=== PATIENT | male | born 1975 | race Caucasian/White ===

== ENCOUNTER 2025-04-09 13:33 | Outpatient (CLI) | payer OTHER, SELFPAY ==
--- NOTE | ~2025-04-09 | CT_ITS ---
EXAMINATION: CT of the paranasal sinuses without contrast INDICATION: Chronic sinusitis COMPARISON(S): None. TECHNIQUE: Computed tomography (CT) of the paranasal sinuses was performed without the use of intravenous contrast. Dose reduction technique was utilized. FINDINGS: Sinuses: The paranasal sinuses are clear. Nasal Septum: Mildly deviated to the left.. Osteomeatal complexes: Patent. Soft tissues: Normal. IMPRESSION: No significant abnormality is seen. Reviewed, dictated and finalized at location A. T WORKER
--- OUTSIDE RECORDS SUMMARY | 2025-04-10 12:50 | XMS_ITS | Encounter Summary ---
Author Organization [facility] Address [address] [facility] [place] [address] Care Team Providers Care Plsql Developer Name Role Phone Rekha Singh MD Primary Care Provider [phone] Juvenal Quinteros MD Primary Care Provider + [phone] Reason for Visit * Reason Onset Date Comments MEDICATION REFILL 01/10/2023 Encounter Details Date Type Department Care Team (Late st Contact Info) Description 01/10/2023 Refill [facility] - [facility]rology [address] [facility], [facility] [place] [address] Cheyenne Herrera MD [address] [place] [address] MEDICATION REFILL Social History Tobacco Use Types Packs/Day Years Used Date Smoking Tobacco: Former Cigarettes Smokeless Tobacco: Never Alcohol Use Standard Drinks/Week Comments No 0 (1 standard drink = 0.6 oz pur e alcohol) PHQ-2 Answer Date Recorded PHQ2 TOTAL SCORE 4 10/04/2022 Sex and Gender Information Value Date Recorded Sex Assigned at Not on file Legal Sex Male 1:18 PM PUBLIC HEALTH ASSISTANT Gender Identity Not on file Sexual Orientation Not on file documented as of this encounter Miscellaneous Notes * Telephone Encounter - Judy Lazcano - 01/11/2023 6:58 AM CDT Refill Request Jason Thakur DENY: 10/14/2022 NOV due: NOV scheduled: LRF: 07/14/2022 Qty Disp: 180 # of refills: 2 Allergies: No Known Allergies Pended Medication Order: Requested Prescriptions Pending Prescriptions Disp Refills ??? baclofen (Lioresal) 10 MG tablet 180 tablet 2 Sig: Take 1.5 (one and one-half) tablets by mouth 4 times daily May cause drowsiness. documented in this encounter Plan of Treatment Upcoming Encounters Date Type Department Care Team (Late st Contact Info) Description 04/16/2025 8:00 AM PUBLIC HEALTH ASSISTANT Office Visit [facility] - Neurology [address] [place] [address] [place] [phone] Hollis Kahn MD [address] [place] [address] 02/26/2026 10:00 AM CDT Office Visit [facility] - Dermatology [address] [place] [address], [place] [address] Betsey Verduzco MD [address] [place] [place] [address] 3 [place] [address] documented as of this encounter Visit Diagnoses Diagnosis Multiple sclerosis Spasticity Abnormal involuntary movements documented in this encounter Care Teams Plsql Developer Relationship Specialty Start Date End Date Rekha Singh MD [address] [place] [phone] PCP - General 03/17/22 03/27/23 Juvenal Quinteros MD [address] [phone] PCP - General Family Medicine 03/28/23 documented as of this encounter
--- OUTSIDE RECORDS SUMMARY | 2025-04-10 12:50 | XMS_ITS | Encounter Summary ---
Author Organization [facility] Address [address] [place] [address] Care Team Providers Care Senior Master Scheduler Name Role Phone Juvenal Quinteros MD Primary Care Provider [phone] Reason for Visit * Reason Onset Date Comments MEDICATION REFILL 12/25/2023 Encounter Details Date Type Department Care Team (Late Contact Info) Description 12/25/2023 Refill [facility] [address] [place] [phone] Sherman Hernandez MD [address] [place] [phone] MEDICATION REFILL Social History Tobacco Use Types Packs/Day Years Used Date Smoking Tobacco: Former Cigarettes Smokeless Tobacco: Never Alcohol Use Standard Drinks/Week Comments No 0 (1 standard drink = 0.6 oz pur e alcohol) PHQ-2 Answer Date Recorded Patient Health Questionnaire-2 Score 2 12/13/2023 Sex and Gender Information Value Date Recorded Sex Assigned at Not on file Legal Sex Male 1:18 PM BARREL HEADER Gender Identity Not on file Sexual Orientation Not on file documented as of this encounter Plan of Treatment Upcoming Encounters Date Type Department Care Team ([facility] Contact Info) Description 04/16/2025 8:00 AM BARREL HEADER Office Visit [facility] Neurology [address] [place] [phone] Hollis Kahn MD [address] [place] [address] 02/26/2026 10:00 AM CDT Office Visit [facility] - Dermatology [address] [place] [address], [place] [address] Betsey Verduzco MD [address] [place] [address] [address] [place] [address] documented as of this encounter Visit Diagnoses Diagnosis MS (multiple sclerosis) Multiple sclerosis documented in this encounter Care Teams Senior Master Scheduler Relationship Specialty Start Date End Date Juvenal Quinteros MD [address] [phone] PCP - General Family Medicine 03/28/23 documented as of this encounter
--- OUTSIDE RECORDS SUMMARY | 2025-04-10 12:50 | XMS_ITS | Encounter Summary ---
Author Organization [facility] Address [address] [place] [address] Care Team Providers Care Dispensary Clerk Name Role Phone Rekha Singh MD Primary Care Provider + [phone] Rekha Singh MD Primary Care Provider + [phone] Juvenal Quinteros MD Primary Care Provider + [phone] Reason for Visit * Reason Onset Date Comments MEDICATION REFILL 11/09/2021 Encounter Details Date Type Department Care Team (Late Contact Info) Description 11/09/2021 Refill [facility] [address] [place] [address] Saman Michael MD [facility] [address] [address] MEDICATION REFILL Social History Tobacco Use Types Packs/Day Years Used Date Smoking Tobacco: Former Cigarettes Smokeless Tobacco: Never Alcohol Use Standard Drinks/Week Comments No 0 (1 standard drink = 0.6 oz pur e alcohol) Sex and Gender Information Value Date Recorded Sex Assigned at Not on file Legal Sex Male 1:18 PM LOCOMOTIVE REPAIRER DIESEL Gender Identity Not on file Sexual Orientation Not on file documented as of this encounter Plan of Treatment Upcoming Encounters Date Type Department Care Team (Late Contact Info) Description 04/16/2025 8:00 AM LOCOMOTIVE REPAIRER DIESEL Office Visit [facility] Neurology [address] [place] [address] [place] [address] Hollis Kahn MD [address] [place] [address] 02/26/2026 10:00 AM CDT Office Visit [facility] - Dermatology [address] [place] [address], [place] [phone] Betsey Verduzco MD [address] [place] [address] [address] [place] [address] documented as of this encounter Visit Diagnoses Diagnosis Neuropathic pain Neuralgia, neuritis, and radiculitis, unspecified documented in this encounter Care Teams Dispensary Clerk Relationship Specialty Start Date End Date Rekha Singh MD [address] [place] [address] [address] [place] [phone] PCP - General 04/22/19 03/16/22 Rekha Singh MD [address] [place] [address] [address] [place] [phone] PCP - General 03/17/22 03/27/23 Juvenal Quinteros MD [address] [phone] PCP - General Family Medicine 03/28/23 documented as of this encounter
--- OUTSIDE RECORDS SUMMARY | 2025-04-10 12:50 | XMS_ITS | Encounter Summary ---
Author Organization [facility] Address [address] [facility] [place] [address] Care Team Providers Care Manager Site Name Role Phone Rekha Singh MD Primary Care Provider + [phone] Rekha Singh MD Primary Care Provider + [phone] Juvenal Quinteros MD Primary Care Provider + [phone] Reason for Visit * Reason Onset Date Comments MEDICATION REFILL 10/19/2019 Encounter Details Date Type Department Care Team (Late Contact Info) Description 10/19/2019 Refill [facility] [address] [place] [address] [facility] [address] [address] MEDICATION REFILL Social History Tobacco Use Types Packs/Day Years Used Date Smoking Tobacco: Former Cigarettes Smokeless Tobacco: Never Alcohol Use Standard Drinks/Week Comments No 0 (1 standard drink = 0.6 oz pur e alcohol) Sex and Gender Information Value Date Recorded Sex Assigned at Not on file Legal Sex Male 1:18 PM APRN Gender Identity Not on file Sexual Orientation Not on file documented as of this encounter Plan of Treatment Upcoming Encounters Date Type Department Care Team (Late Contact Info) Description 04/16/2025 8:00 AM APRN Office Visit [facility] Neurology [address] [place] [address] [place] [address] Hollis Kahn MD [address] [place] [address] 02/26/2026 10:00 AM CDT Office Visit [facility] - Dermatology [address] [facility], [place] [address] Betsey Verduzco MD [address] [place] [address] [address] [place] [address] documented as of this encounter Visit Diagnoses Diagnosis Spasticity Abnormal involuntary movements Multiple sclerosis documented in this encounter Care Teams Manager Site Relationship Specialty Start Date End Date Rekha Singh MD [address] [place] [address] [place] [phone] PCP - General 04/22/19 03/16/22 Rekha Singh MD [address] [place] [address] [place] [phone] PCP - General 03/17/22 03/27/23 Juvenal Quinteros MD 3 [facility] [address] [place] [phone] PCP - General Family Medicine 03/28/23 documented as of this encounter
--- OUTSIDE RECORDS SUMMARY | 2025-04-10 12:50 | XMS_ITS | Encounter Summary ---
Author Organization [facility] Address [facility] [place] [address] Care Team Providers Care Precision Agronomist Name Role Phone Rekha Singh MD Primary Care Provider [phone] Encounter Details Date Type Department Care Team (Late st Contact Info) Description 09/13/2020 Prep for Procedure [facility] [place], [place] [phone] Moshe Sharif MD [address] [phone] Social History Tobacco Use Types Packs/Day Years Used Date Smoking Tobacco: Never Smokeless Tobacco: Never Alcohol Use Standard Drinks/Week Comments Yes 0 (1 standard drink = 0.6 oz pur e alcohol) AUDIT-C Answer Date Recorded Frequency of Alcohol Consumption Never 10/02/2018 Average Number of Drinks Not on file 019 Frequency of Binge Drinking Not on file 09/05 Sex and Gender Information Value Date Recorded Sex Assigned at Not on file Legal Sex Male 11:29 PM CDT Gender Identity Not on file Sexual Orientation Not on file COVID-19 Exposure Response Date Recorded In the last month, have you been in contact with someone who was confirmed or suspected to have Coronavirus / COVID-19? No / Unsure 09/16/2020 1:30 PM CDT documented as of this encounter Plan of Treatment Not on file documented as of this encounter Results * PRE-SURGICAL/PRE-PROCEDURE CORONAVIRUS (COVID 19) (09/13/2020 9:00 AM CDT) CORONAVIRUS SARS COV 2 PCR (RESP) NOT DETECTED NOT DETECTED 09/14/2020 1:16 PM CDT [facility] Comment: A Not Detected (negative) test result for this test means that SARS- CoV-2 RNA was not present in the specimen above the limit of detection. A negative result does not rule out the possibility of COVID-19 and should not be used as the sole basis for treatment or patient management decisions. If COVID-19 is still suspected, based on exposure history together with other clinical findings, re-testing should be considered in consultation with public health authorities. Laboratory test results should always be considered in the context of clinical observations and epidemiological data in making a final diagnosis and patient management decisions. Please review the Fact Sheets and FDA authorized labeling available for health care providers and patients using the following websites: https://www.SetJam.avocadostore/home/Covid-19/HCP/Quest[employer]/fact- sheet.html https://www.SetJam.avocadostore/home/Covid-19/Patients/ Quest[employer]/fact-sheet.html This test has been authorized by the FDA under an Emergency Use Authorization (EUA) for use by authorized laboratories. Due to the current public health emergency, [facility] is receiving a high volume of samples from a wide variety of swabs and media for COVID-19 testing. In order to serve patients during this public health crisis, samples from appropriate clinical sources are being tested. Negative test results derived from specimens received in non-commercially manufactured viral collection and transport media, or in media and sample collection kits not yet authorized by FDA for COVID-19 testing should be cautiously evaluated and the patient potentially subjected to extra precautions such as additional clinical monitoring, including collection of an additional specimen. Methodology: Nucleic Acid Amplification Test (NAAT) includes RT-PCR or TMA Additional information about COVID-19 can be found at the [facility] website: www.Euro Freelancers.avocadostore/Covid19. Test performed at [facility] [place] [address] [place] [address] Director: DEYANIRA BLANCA DO,MPH FIRST TEST UNKNOWN 09/13/2020 10:00 AM CDT [facility] EMPLOYED IN HEALTHCARE UNKNOWN 09/13/2020 10:00 AM CDT [facility] SYMPTOMATIC DEFINED BY CDC UNKNOWN 09/13/2020 10:00 AM CDT [facility] DATE OF SYMPTOM ONSET NO 09/13/2020 11:22 AM CDT [facility] HOSPITALIZATION STATUS UNKNOWN 09/13/2020 10:00 AM CDT [facility] PATIENT IN ICU UNKNOWN 09/13/2020 10:00 AM CDT [facility] RESIDENT OF [facility] UNKNOWN 09/13/2020 10:00 AM CDT [facility] NOT 09/13/2020 11:22 AM CDT [facility] PATIENT'S RACE WHITE OR 09/13/2020 10:00 AM CDT [facility] ETHNICITY NONHISPANIC 09/13/2020 10:00 AM CDT [facility] SOURCE (QST) NASOPHARYNGEAL SWAB 09/13/2020 10:00 AM CDT [facility] NASOPHARYNGEAL SWAB / Unknown 09/13/2020 9:00 AM CDT us Moshe Sharif MD MICROBIOLOGY - GENERAL GUILLERMINA DOTSON Final Result [facility] 3 [place] [address], [place] [phone] [facility] [id number] [place] [address], documented in this encounter Visit Diagnoses Diagnosis Hematochezia- Primary Blood in stool documented in this encounter Additional Health Concerns Infection Onset Date Last Indicated Resolved Time COVID-19 Rule Out 09/13/2020 09/13/2020 09/14/2020 1:16 PM CDT documented as of this encounter Care Teams Precision Agronomist Relationship Specialty Start Date End Date Rekha Singh MD 3 [facility] [place] [address] PCP - General FAMILY PRACTICE 10/02/18 documented as of this encounter
--- OUTSIDE RECORDS SUMMARY | 2025-04-10 12:50 | XMS_ITS | Encounter Summary ---
Author Organization [facility] Address [address] [place] [address] Care Team Providers Care Recruiter Manager Name Role Phone Eddie Krueger MD Primary Care Provider [phone] Eyad Appiah DO Primary Care Provider Monse Navarro MD Primary Care Provider Jamal Masters MD Primary Care Provider [phone] Monse Navarro MD Primary Care Provider Rekha Singh MD Primary Care Provider [phone] Rekha Singh MD Primary Care Provider [phone] Juvenal Quinteros MD Primary Care Provider [phone] Encounter Details Date Type Department Care Team (Late st Contact Info) Description 07/10/2015 Lab Requisition [facility] [place] - Lab Cytogenetics [address] [place] [address] [place] [address] [facility] [address] [place] [address] Social History Tobacco Use Types Packs/Day Years Used Date Smoking Tobacco: Never Assessed Sex and Gender Information Value Date Recorded Sex Assigned at Not on file Legal Sex Male 1:18 PM CERTIFIED NOVELL ADMINISTRATOR Gender Identity Not on file Sexual Orientation Not on file documented as of this encounter Plan of Treatment Upcoming Encounters Date Type Department Care Team (Late st Contact Info) Description 04/16/2025 8:00 AM CERTIFIED NOVELL ADMINISTRATOR Office Visit [facility] [address] [place] [address], [place] [phone] Hollis Kahn MD [address] [place] [address] 02/26/2026 10:00 AM CDT Office Visit [facility] - Dermatology [address] [place] [address], [place] [phone] [place] [address] [place] [address] [address] [place] [address] documented as of this encounter Procedures Procedure Name Priority Date/Time Associated Diagnosis Comments CYTOGENETICS CANCER PANEL Routine 07/10/2015 10:38 AM CERTIFIED NOVELL ADMINISTRATOR documented in this encounter Results * CYTOGENETICS CANCER PANEL (07/10/2015 10:38 AM [facility]) Indication for Study MPD (pre-treatment) 07/17/2015 9:54 AM [facility] Results Cytogenetics Analysis of 20 cells (8 cells karyotyped, GTL-banding) from 24-hour unstimulated and 72-hour Interleukin stimulated bone marrow cultures showed the following chromosome pattern: 46,XY[20] 07/17/2015 9:54 AM [facility] Interpretation Male chromosome analysis showing 46,XY with no evidence for any clonal structural or numerical abnormality in all cells examined at 400 average band resolution. FISH MDS/MPD disease panels were not performed because flow and bone morphology were negative. Note: One metaphase cell had a questionable 3q. Therefore, FISH of EVI1 was performed and found negative. 07/17/2015 9:54 AM [facility] at [address] [facility] Disclaimer *This test was developed, and its performance characteristics determined by [facility] as required by CLIA '88 Regulations. It has not been cleared or approved for specific uses by the U.S. Food and Drug Administration. The FDA has determined that such clearance or approval is not necessary. This test is used for clinical purposes. It should not be reported as investigational or for research. 07/17/2015 9:54 AM [facility] Client Information [facility] - [id number] [facility] Lab Numbers: [id number] chrom, [id number] FISH 07/17/2015 9:54 AM [facility] Other BONE MARROW SPECIMEN / Unknown 07/10/2015 10:38 AM CERTIFIED NOVELL ADMINISTRATOR 07/10/2015 1:21 PM CERTIFIED NOVELL ADMINISTRATOR Bernard Wisdom MD LAB - PATHOLOGY/CYTOLOGY ORDERAB LES Final Result Performing Organization Address City/State/[facility] Co de Phone Number [facility] [address] [place] [address] documented in this encounter Visit Diagnoses Not on filedocumented in this encounter Care Teams Recruiter Manager Relationship Specialty Start Date End Date Eddie [place] [address] PCP - General 12/12/16 10/02/17 Eyad App[place] [address] [address] [place] [address] PCP - General 10/03/17 12/13/17 Monse Navarro MD [address] [place] [address] PCP - General 12/14/17 02/06/18 Jamal Masters MD [address] [place] [phone] PCP - General Family Medicine 02/07/18 03/04/18 Monse Navarro MD [address] [place] [address] PCP - General 03/05/18 09/03/18 Rekha Singh MD [address] [place] [phone] PCP - General 04/22/19 03/16/22 Rekha Singh MD [address] [place] [phone] PCP - General 03/17/22 03/27/23 Juvenal Quinteros MD [address] [phone] PCP - General Family Medicine 03/28/23 documented as of this encounter
--- OUTSIDE RECORDS SUMMARY | 2025-04-10 12:50 | XMS_ITS | Encounter Summary ---
Author Organization [facility] Address [address] [facility] [place] [address] Care Team Providers Care Certified Scrub Tech Name Role Phone Rekha Singh MD Primary Care Provider [phone] Juvenal Quinteros MD Primary Care Provider + [phone] Reason for Visit * Reason Onset Date Comments MEDICATION REFILL 12/10/2022 Encounter Details Date Type Department Care Team (Late st Contact Info) Description 12/10/2022 Refill [facility] [address] [facility] [place] [phone] Cheyenne Herrera MD [address] [place] [address] MEDICATION REFILL Social History Tobacco Use Types Packs/Day Years Used Date Smoking Tobacco: Former Cigarettes Smokeless Tobacco: Never Alcohol Use Standard Drinks/Week Comments No 0 (1 standard drink = 0.6 oz pur e alcohol) PHQ-2 Answer Date Recorded PHQ2 TOTAL SCORE 4 10/04/2022 Sex and Gender Information Value Date Recorded Sex Assigned at Not on file Legal Sex Male 1:18 PM HOTEL CASINO FLOORPERSON Gender Identity Not on file Sexual Orientation Not on file documented as of this encounter Miscellaneous Notes * Telephone Encounter - Cleopatra Ballard MA - 12/12/2022 8:13 AM CDT Refill Request DENY: 10/14/2022 NOV scheduled: n/a LRF: 07/14/2022 Qty Disp: 180 # of refills: 2 documented in this encounter Plan of Treatment Upcoming Encounters Date Type Department Care Team (Late st Contact Info) Description 04/16/2025 8:00 AM HOTEL CASINO FLOORPERSON Office Visit [facility] [address] [place] [address] [place] [address] Hollis Kahn MD [address] [place] [address] 02/26/2026 10:00 AM CDT Office Visit [facility] - Dermatology [address] [place] [address], [place] [address] Betsey Verduzco MD [address] [place] [address] [address] [place] [address] documented as of this encounter Visit Diagnoses Diagnosis Multiple sclerosis Spasticity Abnormal involuntary movements documented in this encounter Care Teams Certified Scrub Tech Relationship Specialty Start Date End Date Rekha Singh MD [address] [place] [address] 201 [place] [phone] PCP - General 03/17/22 03/27/23 Juvenal Quinteros MD 3 [facility] [address] [place] [phone] PCP - General Family Medicine 03/28/23 documented as of this encounter
--- OUTSIDE RECORDS SUMMARY | 2025-04-10 12:50 | XMS_ITS | Encounter Summary ---
Author Organization [facility] Address [address] [place] [address] Care Team Providers Care Access Rep Name Role Phone Rekha Singh MD Primary Care Provider [phone] Juvenal Quinteros MD Primary Care Provider [phone] Reason for Visit * Reason Onset Date Comments MEDICATION REFILL 11/23/2022 Encounter Details Date Type Department Care Team (Late st Contact Info) Description 11/23/2022 Refill [facility] - [facility]rology [address] [facility] [place] [phone] Cheyenne Herrera MD [address] [place] [address] MEDICATION REFILL Social History Tobacco Use Types Packs/Day Years Used Date Smoking Tobacco: Former Cigarettes Smokeless Tobacco: Never Alcohol Use Standard Drinks/Week Comments No 0 (1 standard drink = 0.6 oz pur e alcohol) PHQ-2 Answer Date Recorded PHQ2 TOTAL SCORE 4 10/04/2022 Sex and Gender Information Value Date Recorded Sex Assigned at Not on file Legal Sex Male 1:18 PM BODY DIE MAKER Gender Identity Not on file Sexual Orientation Not on file documented as of this encounter Miscellaneous Notes * Telephone Encounter - Cleopatra Ballard MA - 11/23/2022 9:48 AM CDT Refill Request DENY: 10/14/2022 NOV scheduled: n/a LRF: 07/14/2022 Qty Disp: 180 # of refills: 2 documented in this encounter Plan of Treatment Upcoming Encounters Date Type Department Care Team (Late st Contact Info) Description 04/16/2025 8:00 AM BODY DIE MAKER Office Visit [facility] - Neurology [address] [place] [address] [place] [address] Hollis Kahn MD [address] [place] [address] 02/26/2026 10:00 AM CDT Office Visit [facility] - Dermatology [address] [place] [address], [place] [address] Betsey Verduzco MD [address] [place] [address] [address] [place] [address] documented as of this encounter Visit Diagnoses Diagnosis Multiple sclerosis Spasticity Abnormal involuntary movements documented in this encounter Care Teams Access Rep Relationship Specialty Start Date End Date Rekha Singh MD [address] [place] [address] [address] [place] [phone] PCP - General 03/17/22 03/27/23 Juvenal Quinteros MD [address] [facility] [address] [place] [phone] PCP - General Family Medicine 03/28/23 documented as of this encounter
--- OUTSIDE RECORDS SUMMARY | 2025-04-10 12:50 | XMS_ITS | Encounter Summary ---
Author Organization [facility] Address [address] [place] [address] Care Team Providers Care Mentally Impaired Teacher Name Role Phone Rekha Singh MD Primary Care Provider [phone] Juvenal Quinteros MD Primary Care Provider + [phone] Reason for Visit * Reason Onset Date Comments MEDICATION REFILL 01/13/2023 Encounter Details Date Type Department Care Team (Late st Contact Info) Description 01/13/2023 Refill [facility] Neurology [address] [place] [address], [place] [address] Sherman Hernandez MD [address] [place] [phone] MEDICATION REFILL Social History Tobacco Use Types Packs/Day Years Used Date Smoking Tobacco: Former Cigarettes Smokeless Tobacco: Never Alcohol Use Standard Drinks/Week Comments No 0 (1 standard drink = 0.6 oz pur e alcohol) PHQ-2 Answer Date Recorded PHQ2 TOTAL SCORE 4 10/04/2022 Sex and Gender Information Value Date Recorded Sex Assigned at Not on file 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 baclofen (Lioresal) 10 MG tablet 180 tablet 2 Sig: Take 1.5 (one and one-half) tablets by mouth 4 times daily May cause drowsiness. Refused Prescriptions Disp Refills ??? Tecfidera 240 MG capsule 60 capsule 11 Sig: Take 1 (one) capsule by mouth 2 times daily Refused By: KOLBY HENRY Reason for Refusal: Refill Req Msg Error - Unknown or Duplicate Patient documented in this encounter Plan of Treatment Upcoming Encounters Date Type Department Care Team (Late st Contact Info) Description 04/16/2025 8:00 AM SOFTWARE COMPUTER SPECIALIST Office Visit [facility] - Neurology [address] [place] [phone] Hollis Kahn MD [address] [place] [address] 02/26/2026 10:00 AM CDT Office Visit [facility] - Dermatology [address] [place] [phone] Betsey Verduzco MD [address] [place] [address] [address] [place] [address] documented as of this encounter Visit Diagnoses Diagnosis MS (multiple sclerosis) Multiple sclerosis Multiple sclerosis Spasticity Abnormal involuntary movements documented in this encounter Care Teams Mentally Impaired Teacher Relationship Specialty Start Date End Date Rekha Singh MD [address] [place] [address] [address] [place] [phone] PCP - General 03/17/22 03/27/23 Juvenal Quinteros MD [address] [place] [address] [address] [place] [address] PCP - General Family Medicine 03/28/23 documented as of this encounter
--- OUTSIDE RECORDS SUMMARY | 2025-04-10 12:50 | XMS_ITS | Encounter Summary ---
Author Organization [facility] Address [address] [facility] [address] Care Team Providers Care Technical Expert Name Role Phone Juvenal Quinteros MD Primary Care Provider [phone] Reason for Visit * Reason Onset Date Comments MEDICATION REFILL 01/05/2024 Encounter Details Date Type Department Care Team (Late Contact Info) Description 01/05/2024 Refill [facility] Neurology [address] [place] [phone] Sherman Hernandez MD [address] [place] [phone] MEDICATION REFILL Social History Tobacco Use Types Packs/Day Years Used Date Smoking Tobacco: Former Cigarettes Smokeless Tobacco: Never Alcohol Use Standard Drinks/Week Comments No 0 (1 standard drink = 0.6 oz pur e alcohol) PHQ-2 Answer Date Recorded Patient Health Questionnaire-2 Score 2 12/13/2023 Sex and Gender Information Value Date Recorded Sex Assigned at Not on file 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 Gender Identity Not on file Sexual Orientation Not on file documented as of this encounter Plan of Treatment Upcoming Encounters Date Type Department Care Team (Late Contact Info) Description 04/16/2025 8:00 AM SNOW RANGER Office Visit [facility] - Neurology [address] [place] [phone] Hollis Kahn MD [address] [place] [address] 02/26/2026 10:00 AM CDT Office Visit [facility] - Dermatology [address] [place] [address], [place] [address] Betsey Verduzco MD [address] [place] [address] [address] [place] [address] documented as of this encounter Visit Diagnoses Diagnosis Multiple sclerosis Spasticity Abnormal involuntary movements documented in this encounter Care Teams Technical Expert Relationship Specialty Start Date End Date Juvenal Quinteros MD [address] [phone] PCP - General Family Medicine 03/28/23 documented as of this encounter
--- OUTSIDE RECORDS SUMMARY | 2025-04-10 12:50 | XMS_ITS | Data Portability ---
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 Lab TSH, ultra-sens itive, serum 2024 025 [facility], [address] [place] [address], [address], [place], [address], 5 12:14:36 CBC 2024 025 [facility], [address] [place] [address], [address], [place], [address], 5 08:34:03 BMP, serum or plasma 2024 025 [facility], [address] [place] [address], [address], [place], [address], 5 08:34:02 HbA1c (hemoglobi n A1c), blood 2024 025 [email or web address] In-Office Order, Internal Use Only DO Not Attach Compendium DO Not Attach Compendium, Do Not Delete/merge, [id number] 13:49:36 Referral otolaryngo logist referral - pt would like to see an ent the community, please do not send the ref to Dr. Alcides MD at the [facility], pt would like to try an alt ENT first. - please include nehal note - 02/24/2025 as well as mri 05/24/20232024 025 [facility], [address] [facility], [place] [address], [place], [address], 12:13:52 neurologis t referral - Please consider taking this patient. THIS IS NOT A SECOND OPINION. [facility] can no longer see the patient. 2023 024 [facility], [address] [place], [address], 17:14:32 Procedures None recorded. Surgeries None recorded. Imaging None recorded. Medication Orders fluticason e propionate 50 mcg/actuat ion nasal spray,susp ension 2024 025 [id number], [address], [place], [id number], 09:20:20 Patient TargetsNo targets recorded. Patient InstructionsNo instructions recorded. Reason for Referral Neurologist Referral for Mul tiple sclerosis Please consider taking this patient. THIS IS NOT A SECOND OPINION. [facility] can no longer see the patient. Referring Physician: Juvenal Quinteros, Family Medicine, Encounter Date: 02/27/2024 Spa Consultant Referral fo r Deviated nasal septum pt would like to see an ent the community, please do not send the ref to Dr. Alcides MD at the [facility], pt would like to try an alt ENT first. - please include nehal note - 02/24/2025 as well as mri 05/24/2023 Referring Physician: Juvenal Quinteros Family Medicine, Encounter Date: 02/24/2025 Results Created Date Observation Date Name Description Value Unit Range Abnormal Flag Note LastModifiedBy Organization Detail LastModifiedTime 03/21/2003/21/2023 lipid panel , serum cholesterol, total, serum 190 mg/dL high: 200mg/ dL Not Available Not Available 02/24/2025 04:56:02 03/21/2003/21/2023 lipid panel , serum HDL cholesterol, serum 53 mg/dL low: 40mg/d L ATP III Class ifica tion of HDL Adela stero l: <40 mg/dL : Consi dered a major risk facto r. >60 mg/dL : Consi dered a negat teresa risk facto r. Not Available Not Available 02/24/2025 04:56:02 03/21/2003/21/2023 lipid panel , serum LDL, calculated, serum (obs) 120 mg/dL high: 100mg/ dL high ATP III Class ifica tion of LDL Adela stero l: <100 mg/dL : Optim al 100 - 129 mg/dL : Near Optim al/Ab ove Optim al 130 - 159 mg/dL : Borde rline High 160 - 189 mg/dL : High >190 mg/dL : Very High Not Available Not Available 02/24/2025 04:56:02 03/21/2003/21/2023 lipid panel , serum tricyclic antidepressa nts, quantitative , serum or plasma 85 mg/dL high: 150mg/ dL ATP III Class ifica tion of Trigl yceri ngozi: <150 mg/dL : Tasia l 150 - 199 mg/dL : Borde rline High 200 - 400 mg/dL : High >500 mg/dL : Very High Not Available Not Available 02/24/2025 04:56:02 03/21/2003/21/2023 lipid panel , serum lab interpretati on Abnorm al Not Available Not Available 04:56:02 04/17/20 24 04/17/2024 vitam in D3, 25-hy droxy , serum vitamin D, 25-hydroxy, total, serum 63.5 NG/mL low: 30NG/m Lhigh: 80NG/m L The recom menda tions for 25-Hy droxy Vitam in D clini madhuri decis ion point s are as follo ws: Defic ient: <20.0 ng/mL Insuf ficie nt: 20.0 - 29.9 ng/mL Suffi cient : 30.0 - 100.0 ng/mL Poten tial Toxic ity: >100 ng/mL Refer ence: The Endoc rine Socie ty Clini madhuri Pract ice Guide lines . 2010 If the 25-Hy droxy Vitam in D resul ts are incon siten t with clini madhuri evide nce, it is recom todd d that follo w-up testi ng using a metho d such as LC/MS /MS be perfo rmed to confi rm the resul t. Not Available Not Available 02/24/2025 04:55:39 04/17/2004/17/2024 vitam in D3, 25-hy droxy , serum lab interpretati on Normal Not Available Not Available 02/04 04:55:39 04/17/2004/17/2024 CMP, serum or plasm a BUN (blood urea nitrogen), serum or plasma 8 mg/dL low: 7mg/dL high: 26mg/d L Not Available Not Available 02/24/2025 04:55:39 04/17/2004/17/2024 CMP, serum or plasm a creatinine, serum or plasma 1.12 mg/dL low: 0.71mg /dLhig h: 1.16mg /dL Not Available Not Available 02/24/2025 04:55:39 04/17/20 24 04/17/2024 CMP, serum or plasm a sodium, serum or plasma 139 mmol/ L low: 136mmo l/Lhig h: 145mmo l/L Not Available Not Available 02/24/2025 04:55:39 04/17/20 24 04/17/2024 CMP, serum or plasm a potassium, serum or plasma 5.4 mmol/ L low: 3.5mmo l/Lhig h: 4.5mmo l/L high Not Available Not Available 02/24/2025 04:55:39 04/17/20 24 04/17/2024 CMP, serum or plasm a chloride, serum or plasma 105 mmol/ L low: 98mmol /Lhigh : 107mmo l/L Not Available Not Available 02/24/2025 04:55:39 04/17/2004/17/2024 CMP, serum or plasm a CO2, (carbon dioxide), total, serum or plasma 24 mmol/ L low: 22mmol /Lhigh : 29mmol /L Not Available Not Available 02/24/2025 04:55:39 04/17/2004/17/2024 CMP, serum or plasm a glucose, qn [mass/volume ], serum or plasma 86 mg/dL low: 70mg/d Lhigh: 99mg/d L Not Available Not Available 02/24/2025 04:55:39 04/17/2004/17/2024 CMP, serum or plasm a calcium, qn, serum or plasma 9.6 mg/dL low: 8.4mg/ dLhigh : 10.2mg /dL Not Available Not Available 02/24/2025 04:55:39 04/17/20 24 04/17/2024 CMP, serum or plasm a protein, total, serum 7.4 g/dL low: 6g/dLh igh: 8.3g/d L Not Available Not Available 02/24/2025 04:55:39 04/17/20 24 04/17/2024 CMP, serum or plasm a albumin, qn, bcg dye, serum or plasma 4.1 g/dL low: 3.4g/d Lhigh: 5g/dL Not Available Not Available 02/24/2025 04:55:39 04/17/20 24 04/17/2024 CMP, serum or plasm a bilirubin, total, serum or plasma 0.4 mg/dL low: 0.2mg/ dLhigh : 1.2mg/ dL Not Available Not Available 02/24/2025 04:55:39 04/17/20 24 04/17/2024 CMP, serum or plasm a alkaline phosphatase, serum or plasma 72 U/L low: 40U/Lh igh: 150U/L Not Available Not Available 02/24/2025 04:55:39 04/17/20 24 04/17/2024 CMP, serum or plasm a alanine aminotransfe rase, qn, no addition of P-5'-P, serum or plasma 10 U/L low: 5U/Lhi gh: 55U/L Not Available Not Available 02/24/2025 04:55:39 04/17/20 24 04/17/2024 CMP, serum or plasm a AST/SGOT (aspartate aminotransfe rase), serum or plasma 15 U/L low: 5U/Lhi gh: 34U/L Not Available Not Available 02/24/2025 04:55:39 04/17/20 24 04/17/2024 CMP, serum or plasm a anion gap 10 low: 6high: 16 Not Available Not Available 02/24/2025 04:55:39 04/17/2004/17/2024 CMP, serum or plasm a BUN/creatini ne, ratio, serum 7 low: 7high: 23 Not Available Not Available 02/24/2025 04:55:39 04/17/2004/17/2024 CMP, serum or plasm a osmolality calculated 286 text: 275 - 295 mOsm/k g Not Available Not Available 02/24/2025 04:55:39 04/17/2004/17/2024 CMP, serum or plasm a albumin/glob ulin ratio 1.2 low: 1.1hig h: 2.3 Not Available Not Available 02/24/2025 04:55:39 04/17/20 24 04/17/2024 CMP, serum or plasm a glomerular filtration rate/1.73 sq M predicted, qn, creatinine based formula (CKD-epi 2020), serum or plasma or blood 80 text: >=90 mL/min /1.73 m2 low Not Available Not Available 02/24/2025 04:55:39 04/17/2004/17/2024 CMP, serum or plasm a lab interpretati on Abnorm al Not Available Not Available 04:55:39 04/17/20 24 04/17/2024 CBC w/ auto diff WBC, auto, blood 8 text: 4.0 - 10.7 x10e9/ L Not Available Not Available 02/24/2025 04:55:39 04/17/20 24 04/17/2024 CBC w/ auto diff RBC count, blood 4.9 text: 4.30 - 5.80 x10e12 /L Not Available Not Available 02/24/2025 04:55:39 04/17/20 24 04/17/2024 CBC w/ auto diff hemoglobin (Hb), blood 16.5 g/dL low: 13.3g/ dLhigh : 17.5g/ dL Not Available Not Available 02/24/2025 04:55:39 04/17/2004/17/2024 CBC w/ auto diff hematocrit, automated count, blood 48.2 % low: 38.7%h igh: 51.1% Not Available Not Available 02/24/2025 04:55:39 04/17/2004/17/2024 CBC w/ auto diff MCV, blood 98.4 fL low: 80fLhi gh: 98fL high Not Available Not Available 02/24/2025 04:55:39 04/17/2004/17/2024 CBC w/ auto diff MCH, qn, automated (obs) 33.7 pg low: 26.7pg high: 33.6pg high Not Available Not Available 02/24/2025 04:55:39 04/17/20 24 04/17/2024 CBC w/ auto diff MCHC, qn, automated (obs) 34.2 g/dL low: 31.7g/ dLhigh : 36.3g/ dL Not Available Not Available 02/24/2025 04:55:39 04/17/2004/17/2024 CBC w/ auto diff erythrocyte distribution width, ratio, automated (obs) 12.5 % low: 11.3%h igh: 14.8% Not Available Not Available 02/24/2025 04:55:39 04/17/20 24 04/17/2024 CBC w/ auto diff platelets, auto, blood 156 text: 150 - 420 x10e9/ L Not Available Not Available 02/24/2025 04:55:39 04/17/2004/17/2024 CBC w/ auto diff platelet mean volume, qn, automated, blood (obs) 11.4 fL low: 7.8fLh igh: 11.4fL Not Available Not Available 02/24/2025 04:55:39 04/17/20 24 04/17/2024 CBC w/ auto diff neutrophils/ 100 leukocytes, automated, blood (obs) 75.2 % low: 41%hig h: 74% high Not Available Not Available 02/24/2025 04:55:39 04/17/20 24 04/17/2024 CBC w/ auto diff lymphocytes/ 100 leukocytes, automated, blood (obs) 17.3 % low: 17%hig h: 47% Not Available Not Available 02/24/2025 04:55:39 04/17/20 24 04/17/2024 CBC w/ auto diff monocytes/10 0 leukocytes, automated, blood (obs) 5.2 % low: 3%high : 11% Not Available Not Available 02/24/2025 04:55:39 04/17/2004/17/2024 CBC w/ auto diff eosinophils/ 100 leukocytes, automated, blood (obs) 1 % low: 0%high : 7% Not Available Not Available 02/24/2025 04:55:39 04/17/20 24 04/17/2024 CBC w/ auto diff basophils/10 0 leukocytes, automated, blood (obs) 1.1 % low: 0%high : 1.6% Not Available Not Available 02/24/2025 04:55:39 04/17/20 24 04/17/2024 CBC w/ auto diff immature granulocytes /100 leukocytes, automated, blood (obs) 0.2 % low: 0%high : 1% Not Available Not Available 02/24/2025 04:55:39 04/17/20 24 04/17/2024 CBC w/ auto diff neutrophil count, absolute (anc), blood (obs) 6.04 text: 1.60 - 7.50 x10e9/ L Not Available Not Available 02/24/2025 04:55:39 04/17/20 24 04/17/2024 CBC w/ auto diff lymphocytes, quantitative , blood, automated count (obs) 1.39 text: 1.00 - 4.40 x10e9/ L Not Available Not Available 02/24/2025 04:55:39 04/17/20 24 04/17/2024 CBC w/ auto diff monocytes, count, automated, blood (obs) 0.42 text: 0.15 - 1.00 x10e9/ L Not Available Not Available 02/24/2025 04:55:39 04/17/20 24 04/17/2024 CBC w/ auto diff eosinophils, quant, blood 0.08 text: 0.00 - 0.60 x10e9/ L Not Available Not Available 02/24/2025 04:55:39 04/17/20 24 04/17/2024 CBC w/ auto diff basophils, quant, auto, blood (obs) 0.09 text: 0.00 - 0.13 x10e9/ L Not Available Not Available 02/24/2025 04:55:39 04/17/20 24 04/17/2024 CBC w/ auto diff lab interpretati on Abnorm al Not Available Not Available 04:55:39 08/20/19 25 08/19/2024 HbA1c (hemo globi n A1c), blood HbA1c 5.7 Not Available In-Office Order Internal Use Only DO Not Attach Compendium DO Not Attach Compendium, Do Not Delete/merge, [id number] 08/19/2024 09:48:22 05/24/20 23 05/24/2023 MRI, brain , w/wo contr ast No observ ation record ed. [email or web address] [address], [address], 05/24/2023 16:19:34 04/08/20 25 04/07/2025 imagi ng/di agnos tic resul t No observ ation record ed. LATOYA [address], [address], 04/08/2025 10:22:40 Result Notes None recorded. Problems Name Problem SNOMED Code Status Onset Date Resolution Date Notes Provider Name and Address Organization Details Recorded Time Multiple sclerosis 14519279 Active 019 Jamal Masters null, [place] - [facility] 9 13:48:03 Problem Notes None recorded. Medical Equipment None Reported. Allergies No known drug allergies Medications Name Sig Start Date Stop Date Status Note LastModified by Organization Details LastModified Time gabapentin 600 mg tablet TAKE 1 TABLET BY MOUTH FOUR TIMES DAILY active Not Available Not Available No t Available trazodone 50 mg tablet TK 1 T PO HS 09/21 completed Not Available Not Available Not Available clonazepam 0.5 mg tablet 10/02 completed Not Available Not Available Not Available valacyclovi r 500 mg tablet TAKE 1 TABLET BY MOUTH EVERY DAY 03/22 completed Not Available Not Available Not Available trazodone 100 mg tablet TAKE 1 TABLET BY MOUTH EVERY NIGHT NEEDED FOR INSOMNIA OR SLEEP active Not Available Not Available No t Available baclofen 10 mg tablet TAKE 1.5 TABLETS BY MOUTH FOUR TIMES DAILY active Not Available Not Available No t Available acyclovir 200 mg capsule 04/03 completed Not Available Not Available Not Available zolpidem 10 mg tablet 10/02 completed Not Available Not Available Not Available fluticasone propionate 50 mcg/actuati on nasal spray,suspe nsion USE 1 SPRAY IN EACH NOSTRIL TWICE DAILY active Not Available Not Available No t Available amoxicillin 875 mg-potassiu m clavulanate 125 mg tablet Take 1 tablet every 12 hours by oral route for 7 days. 03/15 completed Not Available Not Available Not Available duloxetine 60 mg capsule,del ayed release TAKE 1 CAPSULE BY MOUTH TWICE DAILY active Not Available Not Available No t Available zolpidem ER 12.5 mg tablet,exte nded release,mul tiphase 10/02 completed Not Available Not Available Not Available Vitamin D3 50 mcg (2,000 unit) tablet 04/03 completed Not Available Not Available Not Available dalfampridi ne ER 10 mg tablet,exte nded release,12 hr TAKE 1 TABLET BY MOUTH EVERY 12 HOURS active Not Available Not Available No t Available Tecfidera 120 mg capsule,del ayed release TAKE ONE CAPSULE BY MOUTH TWICE DAILY FOR 7 DAYS 09/16 completed Not Available Not Available Not Available Tecfidera 240 mg capsule,del ayed release TAKE 1 CAPSULE BY MOUTH TWICE DAILY active Not Available Not Available No t Available Vitals Date Recorded Body height Body mass index (BMI) Body weight Body temperature Heart rate Oxygen saturation Oxygen saturation in Arterial blood by Pulse oximetry Systolic And Diastolic Provider Name and Address Organization Details Last Updated DateTime 5 182.88 cm 24.8 kg/m2 61483.9 6 g 98 [degF] 76 /min 97 % 97 % 118/80 mm[Hg] Vale Keen [place] - [facility] 5 09:33:59 Date Recorded Heart rate Provider Name an d Address Organization Details Last Updated DateTime 08/21/2023 98 /min Juvenal Quinteros MD Attn: Accounting,[address] [place], [address], [facility] 08/22/2023 09:49:56 Date Recorded Body height Body mass index (BMI) Body weight Oxygen saturation Oxygen saturation in Arterial blood by Pulse oximetry Heart rate Body temperature Systolic And Diastolic Provider Name and Address Organization Details Last Updated DateTime 4 182.88 cm 23.4 kg/m2 30564.9 9 g 98 % 98 % 104 /min 98.2 [degF] 113/83 mm[Hg] Juana Staton MA [facility] 4 09:04:06 Date Recorded Heart rate Provider Name an d Address Organization Details Last Updated DateTime 02/24/2025 106 /min Juvenal Quinteros MD Attn: Accounting,[address] [place], [address], [facility] 02/25/2025 08:51:22 Date Recorded Body height Body mass index (BMI) Body weight Oxygen saturation Oxygen saturation in Arterial blood by Pulse oximetry Heart rate Body temperature Systolic And Diastolic Provider Name and Address Organization Details Last Updated DateTime 5 182.88 cm 24.2 kg/m2 84150.8 4 g 97 % 97 % 117 /min 97.9 [degF] 124/84 mm[Hg] Juana Staton MA [facility] 5 08:53:17 Date Recorded Body height Body mass index (BMI) Body weight Oxygen saturation Oxygen saturation in Arterial blood by Pulse oximetry Heart rate Body temperature Systolic And Diastolic Provider Name and Address Organization Details Last Updated DateTime 4 182.88 cm 22.6 kg/m2 00832.7 8 g 99 % 99 % 88 /min 98.6 [degF] 114/79 mm[Hg] Juana Staton MA [facility] SI 4 08:58:19 Date Recorded Body height Body mass index (BMI) Body weight Body temperature Oxygen saturation Oxygen saturation in Arterial blood by Pulse oximetry Heart rate Systolic And Diastolic Provider Name and Address Organization Details Last Updated DateTime 3 182.88 cm 24.4 kg/m2 10169.6 8 g 97.7 [degF] 99 % 99 % 80 /min 115/76 mm[Hg] Ty'Kimi Zurita [place] - [facility] 3 09:49:56 Social History Question Answer Notes LastModified by Organizat ion Details LastModified Time Tobacco Smoking Status Former Smoker Quit in 2014 HARVEY [place], [place] - [facility] 08/21/2023 09:02:23 What Is Your Level Of Caffeine Consumption? Moderate Information not available 09/21/2021 What Was The Date Of Your Most Recent Tobacco Screening? 02/24/2025 Information not available 02/24/2025 Sex: Unknown Functional Status Question Answer Note LastModified by Organizat ion Details LastModified Time Do you use any illicit or recreational drugs? No Information not available 12/21/2020 Do you or have you ever used any other forms of tobacco or nicotine? No Information not available 12/21/2020 What is your level of alcohol consumption? None Information not available 12/21/2020 Mental Status None recorded. Family History Nothing Reported. Medical History No medical history recorded. Immunizations Vaccine Type Date Status Note Provider Nam e and Address Organization Details Recorded Time COVID-19 vaccine, vector-nr, rS-Ad26, PF, 0.5 mL 1 completed Juvenal Quinteros MD Attn: Accounting,[address] [place], [address], [place] [facility] 08/19/2024 10:21:23 Influenza, split virus, quadrivalent, PF 6 completed Juvenal Quinteros MD Attn: Accounting,[address] [place], [address], [place] [facility] 08/19/2024 10:21:23 Influenza, split virus, quadrivalent, PF 1 completed HARVEY [place] [facility] 03/22/2021 10:58:20 Tdap 2 completed Juvenal Quinteros MD Attn: Accounting,[address] [place], [address], [place] [facility] 09/21/2021 16:04:05 Influenza, split virus, quadrivalent, PF 2 completed Juana Staton [place], [place] [facility] 03/23/2022 10:19:23 Influenza, split virus, quadrivalent, PF 3 completed Juvenal Quinteros MD Attn: Accounting,[address] [place], [address], [place] [facility] 03/16/2023 07:49:24 Influenza, split virus, trivalent, PF 4 completed Juvenal Quinteros MD Attn: Accounting,[address] [place], [address], [place] [facility] 02/28/2024 08:09:38 Pneumococcal conjugate PCV20, polysaccharide [id number] conjugate, adjuvant, PF 5 completed Vale Keen MA null, [place] - [facility] 08/19/2024 10:28:56 Influenza, split virus, trivalent, PF 5 completed Juana Staton [place] null, [place] [facility] 02/24/2025 09:43:20 Past Encounters Encounter ID Performer Location Encounter Start Date Encounter Closed Date Diagnosis/Indication Diagnosis SNOMED-CT Code Diagnosis ICD10 Code Diagnosis IMO Codes Diagnosis Note [id number] [facility] [address] [address] 01/26/2018 09:42:27 01/29/2018 11:33:53 Multiple sclerosis 60630480 G35 lemtrada infusions at [facility] ated L sided weakness, and foot drop- managed by [facility] neurology- requesting records 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- monitored by [facility] monthly check- will request records [id number] MD Jayesh Gonsalves [address] [address] 10/09/2018 09:30:27 10/10/2018 10:16:10 Abdominal pain 23853208 R10.9 - likely related to constipati on as pain resolved with BM- hip exam WNL - has had colonoscop ys in past that were WNL, last in 2015- GI dx with Irritable bowel- will continue to encourage PO hydration with fiber supplement ation, regular BM and no straining [id number] [facility] [address] [address] 04/03/2019 09:14:53 04/04/2019 10:34:46 Obesity 420328500 E66.9 Obesity Patient's BMI today 04/03/2019 noted be 30.1. Obese category. -Check lipid panel for stratifica tion -Check hemoglobin A1c risk stratifica tion -Check BMP evaluate kidney function Multiple sclerosis 22284 007 G35 Multiple sclerosis Patient followed by [facility] neurology. Dr. Juan Hernandez, on interview patient denied any other medicines aside from his multiple sclerosis infusion therapy. However per chart review patient has had medication s including zolpidem, gabapentin , duloxetine , baclofen, clonazepam filled recently. - Will allow [facility] neurology to continue medicines as above [id number] [facility] [address] [address] 10/03/2019 12:32:59 10/04/2019 07:28:48 Prediabetes 251508707 R73.03 Prediabete s Patient 44-year-ol d gentleman past medical history of obesity as well as prediabete s. Most recent A1c noted to be 5.9 on 04/03/2019 . Most recent BMI noted to be 30.1 on 04/03/2019 . Patient stated he does not consume copious amounts of sugary beverages or processed foods. Patient stated he does exercise on a daily basis. -Continue lifestyle modificati ons, exercise greater than 150 minutes weekly, patient can consider 5 to 10 minutes of exercise after every meal -Encourage d patient to continue to avoid processed foods and sugary beverages -Recheck hemoglobin A1c 12 months from prior hemoglobin A1c which will be on approximat ramon 04/03/2020 -Regarding hyperlipid emia patient's ASCVD risk score noted to be 2.7% which is not a candidate for statin therapy can consider lipid panel every 3 years [id number] MD Jayesh Mojica 3 [facility] [address] [place] [address] 12/21/2020 10:55:41 12/22/2020 12:25:56 Serum creatinine above reference range [id number] R79.89 Serum creatinine raised Patient has elevation in his creatinine , most recent creatinine on file noted to be 04/03/2019 noted creatinine 1.23 GFR 70. Per chart review this apparently was discussed on 04/16/2019 however patient was unable to get his follow-up labs at that time. Per patient on November 18, 2020 creatinine 1.46 GFR 56, on December 09, 2020 creatinine 1.39 GFR 60. Patient's elevated creatinine and decline in GFR could be related to NSAID use as he has been using NSAIDs chronicall y. -Check BMP-Check albumin creatinine ratio urine-Advi sed patient to attempt to utilize alternate pain medication s in place of NSAIDs, patient voiced understand ing-Follow -up clinic 3 months [id number] MD Jayesh Mojica [address] [address] 03/22/2021 08:40:38 03/23/2021 08:58:00 Serum creatinine above reference range [id number] R79.89 Serum creatinine raised See office note from 12/21/2020 for further details regarding creatinine . On interview today patient endorsed dramatic decrease in NSAID usage. Patient reports urinating normally. -Check BMP evaluate creatinine , call patient with result Prediabetes [id number] R7 3.03 Prediabete s Previous hemoglobin A1c on 04/03/2019 noted to be 5.9%. -Check hemoglobin A1c Administra tion of influenza vaccine [id number] Z23 -Provided flu vaccine today [id number] MD Jayesh Mojica [address] [address] 09/21/2021 10:53:27 09/22/2021 13:19:40 Serum creatinine above reference range [id number] R79.89 Patient has history of elevated creatinine /reduced GFR, GFR noted to be approximat ramon 64 on 04/03/2019 creatinine at that time 1.23. GFR approximat ramon 68 on 12/21/2020 creatinine 1.15 at that time, around that time patient was advised to discontinu e taking NSAIDs patient subsequent ly discontinu ed taking NSAIDs subsequent follow-up BMP showed creatinine 1.09 GFR 73. Patient has no documented history of albuminuri a or other forms of kidney damage. -It seems patient does not meet criteria for CKD 2/2 no evidence of kidney damage however his GFR is low (stage 2)-Patient 's GFR appeared to improve after discontinu ing ibuprofen/ NSAIDs-Judy ck BMP to monitor/en sure stability- Check albumin creatinine ratio urine monitor for signs of albuminuri a-will attempt to CC patient's lab results with his guerrero barnhart t-Follow-u p clinic 6 months regular visit Prediabetes [id number] R7 3.03 Previous A1c noted to be 5.9 on 03/22/2021 . Patient is cognizant of diet lifestyle and dietary measures to reduce hemoglobin A1c. -Check hemoglobin A1c, venous Active or passive immunization [id number] Z23 Patient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
--- OUTSIDE RECORDS SUMMARY | 2025-04-10 12:50 | XMS_ITS | Encounter Summary ---
Author Organization [facility] Address [address] [place] [address] Care Team Providers Care Stone Banker Name Role Phone Rekha Singh MD Primary Care Provider [phone] Juvenal Quinteros MD Primary Care Provider + [phone] Reason for Visit * Reason Onset Date Comments MEDICATION REFILL 04/09/2022 Encounter Details Date Type Department Care Team (Late st Contact Info) Description 04/09/2022 Refill [facility] [address] [place] [id number] Saman Michael MD [address] [place] [id number] MEDICATION REFILL Social History Tobacco Use Types Packs/Day Years Used Date Smoking Tobacco: Former Cigarettes Smokeless Tobacco: Never Alcohol Use Standard Drinks/Week Comments No 0 (1 standard drink = 0.6 oz pur e alcohol) PHQ-2 Answer Date Recorded PHQ2 TOTAL SCORE 3 03/29/2022 Sex and Gender Information Value Date Recorded Sex Assigned at Not on file Legal Sex Male 1:18 PM YOKE PRESSER Gender Identity Not on file Sexual Orientation Not on file COVID-19 Exposure Response Date Recorded In the last 10 days, have yo u been in contact with someone who was confirmed or suspected to have Coronavirus/COVID-19? No / Unsure 03/17/2022 7:46 AM CDT documented as of this encounter Miscellaneous Notes * Telephone Encounter - Corey Karmen Zaidi - 04/11/2022 8:42 AM CST Patient asking script be sent to [facility] in [place], [place], please PRESSER documented in this encounter Plan of Treatment Upcoming Encounters Date Type Department Care Team (Late st Contact Info) Description 04/16/2025 8:00 AM YOKE PRESSER Office Visit [facility] - Neurology [address] [place] [address], [place] [address] Hollis Kahn MD [address] [place] [address] 02/26/2026 10:00 AM CDT Office Visit [facility] - Dermatology [address] [place] [address], [place] [address] Betsey Verduzco MD [address] [facility] [address] [place] [address] documented as of this encounter Visit Diagnoses Diagnosis MS (multiple sclerosis) Multiple sclerosis documented in this encounter Care Teams Stone Banker Relationship Specialty Start Date End Date Rekha Singh MD [address] [place] [address] [address] [place] [address] PCP - General 03/17/22 03/27/23 Juvenal Quinteros MD 3 [facility] [address] [place] [address] PCP - General Family Medicine 03/28/23 documented as of this encounter
--- OUTSIDE RECORDS SUMMARY | 2025-04-10 12:50 | XMS_ITS | Clinical Summary ---
Author Organization [facility] Address [address] [facility] [place] [address] Care Team Providers Care Gaming Cage Cashier Name Role Phone Juvenal Quinteros MD Primary Care Provider [phone] Source Comments [facility],non-owned Affiliates and Associated Physician Practices is amultiple site organization consisting of ambulatory clinics and hospital sitesin [place], [place], [place] and [place]. This disclosure is being madepursuant to the Care Everywhere program and may not contain all information available regarding this patient. Last updated 18.[facility] Allergies No known active allergies Medications * This document contains information received from the source organization and may not represent a complete record from that organization. * Be aware that medications may not be up to date on this document. Alwaysverify current medications with the patient. vitamin D, cholecalciferol, 2000 UNITS tabletIndication s:Vitamin D deficiency Take 2 tablets by mouth once daily 60 tablet 11 9 Active calcium carbonate-vitami n D 600-400 MG-UNIT tablet Take 1 (one) tablet by mouth once daily Active melatonin 3 MG tablet Take 2 (two) tablets by mouth at bedtime 180 tablet 3 2 Active baclofen (Lioresal) 10 MG tabletIndication s:Multiple sclerosis,[facility] Take 1.5 (one and one-half) tablets by mouth 4 times daily May cause drowsiness. 540 tablet 3 5 Active dalfampridine ER (Ampyra) 10 MG tabletIndication s:Gait abnormality,Mult iple sclerosis TAKE 1 TABLET BY MOUTH EVERY 12 HOURS 60 tablet 11 5 Active DULoxetine (Cymbalta) 60 MG capsule Take 1 (one) capsule by mouth 2 times daily 180 capsule 2 5 Active traZODone (Desyrel) 100 MG tabletIndication s:Insomnia Take 1 (one) tablet by mouth nightly as needed for Insomnia Reasons: Trouble Sleeping 90 tablet 2 5 08/25/19 26 Active gabapentin (Neurontin) 600 MG tabletIndication s:Neuropathic pain Take 1 (one) tablet by mouth 4 times daily 120 tablet 11 5 Active Tecfidera 240 MG capsuleIndicatio ns:MS (multiple sclerosis),High risk medications (not anticoagulants) long-term use Take 1 (one) capsule by mouth 2 times daily 60 capsule 6 5 Active fluticasone propionate (Flonase) 50 MCG/ACT nasal spray [place] 1 (one) spray into each nostril 2 times daily 5 Active Active Problems Problem Noted Date Diagnosed Date Alcohol use disorder, mild, in sustained remissi on 04/13/2021 Lentigines 02/03/2021 Multiple benign melanocytic nevi of upper extremity, lower extremity, and trunk 02/03/2021 Lesion of right ulnar nerve 11/13/2015 Carpal tunnel syndrome of right wrist 11/13/2015 Other specified diseases of blood and blood-form ing organs 07/08/2015 Secondary polycythemia 06/24/2015 Headache 03/19/2015 Foot drop 03/12/2015 Neuromuscular dysfunction of bladder 03/12/2015 Major depressive disorder, single episode 2014 Disorder of binocular movement 06/02/2014 Hemiplegia 02/06/2014 Abnormality of gait and mobility 02/06/2014 Multiple sclerosis 02/06/2014 Vitamin D deficiency 02/06/2014 Resolved Problems Problem Noted Date Diagnosed Date Resolved Date Neoplasm of uncertain behavior of skin 08/04/2020 02/27/2025 Assessment & Plan (08/04/2020 4:19 PM MANAGED SERVICES SALES CONSULTANT): Lower midline mucosal lip, 2 discrete lesions 1) pigmented lesion c/w mucosal lentigo -- benign reassurance 2) white papule ddx includes wart vs white sponge nevus vs trauma related from biting (morsicatio labiorum) doubt SCC No change since last visit Monitor Encounters Date Type Department Care Team Description 04/07/2025 6:16 AM MANAGED SERVICES SALES CONSULTANT - 04/07/2025 11:59 PM MANAGED SERVICES SALES CONSULTANT Hospital Encounter [facility] MRI [address] [place] [address] Hollis Kahn MD Discharge Disposition: Home or Self Care 04/07/2025 Travel 02/27/2025 10:10 AM CDT Office Visit [facility] - Dermatology [address] [place] [address], [place] [address] Betsey Verduzco MD Dang angioma (Primary Dx); Lentigines; Melanocytic nevi of trunk; Epidermal inclusion cyst 02/27/2025 Travel 02/17/2025 Refill [facility] - Neurology [address] [place] [address], [place] [address] Hollis Kahn MD MEDICATION REFILL from Last 3 Months Immunizations Immunization Administration Dates Next Due INFLUENZA VACCINE 04/20/2021 Family History Medical History Relation Name Comments Heart Disease Maternal Grandfather Hypertension Maternal Grandfather Cancer Mother colon Allergy (Severe) Neg Hx CVA Neg Hx Cancer - Breast Neg Hx Cancer - Skin, Melanoma Neg Hx Cancer - Skin, Non Melanoma Neg Hx Eczema Neg Hx Hemophilia Neg Hx Psoriasis Neg Hx Rashes/Skin Problems Neg Hx Relation Name Status Comments Maternal Grandfather Mother Social History Tobacco Use Types Packs/Day Years Used Date Smoking Tobacco: Former Cigarettes Smokeless Tobacco: Never Alcohol Use Standard Drinks/Week Comments No 0 (1 standard drink = 0.6 oz pur e alcohol) PHQ-2 Answer Date Recorded Patient Health Questionnaire-2 Score 1 11/27/2024 Sex and Gender Information Value Date Recorded Sex Assigned at Not on file Legal Sex Male 1:18 PM MANAGED SERVICES SALES CONSULTANT Gender Identity Not on file Sexual Orientation Not on file Last Filed Vital Signs Vital Sign Reading Time Taken Comments Blood Pressure 129/80 11/27/2024 1:02 PM CDT Pulse 86 11/27/2024 1:02 PM CDT Temperature 37 C (98.6 F) 12/13/2023 12:56 PM CDT Respiratory Rate 14 01/12/2022 11:16 AM CDT Oxygen Saturation 98% 11/27/2024 1:02 PM CDT Inhaled Oxygen Concentration - - Weight 81.6 kg (180 lb) 11/27/2024 1:02 PM CDT Height 185.4 cm (6' 1) 04/17/2024 7:53 AM MANAGED SERVICES SALES CONSULTANT Body Mass Index 23.75 04/17/2024 7:53 AM MANAGED SERVICES SALES CONSULTANT Plan of Treatment Upcoming Encounters Date Type Department Care Team (Late st Contact Info) Description 04/16/2025 8:00 AM MANAGED SERVICES SALES CONSULTANT Office Visit [facility] - Neurology [address] [place] [address] [place] [phone] Hollis Kahn MD [address] [place] [address] 02/26/2026 10:00 AM CDT Office Visit [facility] - Dermatology [address] [place] [address], [place] [phone] Betsey Verduzco MD [address] [place] [address] [address] [place] [address] Health Maintenance Due Date Last Done Comments COLOGUARD (AGES 45-75) - COLON CA SCREENING 1973 CT COLONOGRAPHY - COLON CA SCREENING 1973 FIT - COLON CA SCREENING 1973 FLEX SIG - COLON CA SCREENING 1973 DTAP/TDAP/TD VACCINES (1 - Tdap) 1992 HEPATITIS B VACCINE (1 of 3 - 19+ 3-dose series) 1992 PNEUMOCOCCAL VACCINE 50+ (1 of 1 - PCV) 2023 ZOSTER VACCINE (1 of 2) 2023 COVID-19 VACCINE (1 - 2023- season) 2025 INFLUENZA VACCINE (#1) 2025 03/22/2022, 2020 LIPID TESTING 03/21/2028 03/21/2023 COLON MONITORING 09/16/2030 09/16/2020 COLONOSCOPY - COLON CA SCREENING 09/16/2030 09/16/2020 Colorectal Cancer Screening 09/16/2030 HEPATITIS C SCREENING Completed 09/25/2015, 015 HIV SCREENING Completed 09/25/2015 DEPRESSION SCREENING Completed 11/27/2024, 09/25/2023, 03/21/2023, Additional history exists HIB VACCINE Aged Out No longer eligi ble based on patient's age to complete this topic HPV VACCINE Aged Out No longer eligi ble based on patient's age to complete this topic MENINGOCOCCAL (Group B) VACCINE SHARED DECISION-MAKING Aged Out No longer eligible based on patient's age to complete this topic MENINGOCOCCAL GROUPS A/C/Y/W VACCINE Aged Out No longer eligible based on patient's age to complete this topic Procedures Procedure Name Priority Date/Time Associated Diagnosis Comments MRI BRAIN WWO CONTRAST Routine 04/07/2025 7:46 AM MANAGED SERVICES SALES CONSULTANT MS (multiple sclerosis) LIPID PROFILE Routine 03/21/2023 6:29 AM CDT Major depressive disorder with single episode, in full remission HEPATITIS C AB W/RFLX TO HCV RNA QN PCR Routine 09/25/2015 8:57 AM CDT HIV-1 HIV-2 ANTIGEN/ANTIBODY Routine 09/25/2015 8:57 AM CDT from Last 3 Months or Most Recently Relevant to Health Maintenance Results * MRI Brain Wwo Contrast (04/07/2025 7:46 AM MANAGED SERVICES SALES CONSULTANT) Anatomical Region Laterality Modality Head Magnetic Resonan ce Angiography 04/07/2025 11:0 7 AM MANAGED SERVICES SALES CONSULTANT Impressions 04/08/2025 9:16 AM MANAGED SERVICES SALES CONSULTANT IMPRESSION: Compared to the prior MRI of the brain from 05/24/2023: 1.Stable scan features compared to the prior. 2.Multiple intracranial white matter lesions compatible with multiple sclerosis. No new T2 lesions and no new enhancing lesions to suggest active demyelination. 3.Mild to moderate parenchymal volume loss. > Dictated by Ruiz Rene DO (radiology technologist) 04/07/2025 11:32 AM. > Dictated by Dining Service Supervisor Yoandy Simpson MD have personally reviewed and interpreted this examination/study. > Interpreting Provider: Yoandy Monge MD on 04/08/2025 9:16 AM Narrative 04/08/2025 9:16 AM MANAGED SERVICES SALES CONSULTANT PROCEDURE: MRI BRAIN WWO CONTRAST, DATE/TIME OF EXAM: 04/07/2025 7:47 AM, LOCATION [facility] INDICATION: G35.D: MS (multiple sclerosis) ADDITIONAL CLINICAL INFORMATION: Ordering Provider Reason For Exam: Interval monitoring, Hx MS EXAMINATION: Magnetic resonance imaging (MRI) of the brain without and with contrast TECHNIQUE: MRI of the brain was performed prior to and following the uneventful administration of 8 mL GADAVIST intravenous contrast according to standard protocol. Please note a standard protocol was performed this time. COMPARISON: Multiple prior studies including MRI brain from 05/24/2023 and MRI brain from 09/28/2022 FINDINGS: There are scattered periventricular areas of T2/FLAIR hyperintensity within the subcortical white matter at the level of the woodruff radiata. There is no corresponding true diffusion restriction associated with these T2/FLAIR hyperintensities. There is no associated contrast enhancement of these FLAIR hyperintensities to suggest active demyelination plaques. These appear similar to MRI brain from 05/24/2023 No evidence of acute cerebral infarction is seen. No evidence of acute or chronic hemorrhage is identified. There is mild cerebral volume loss with associated ex vacuo ventricular dilatation. There is diffuse periventricular T2/FLAIR hyperintensity which may represents small vessel ischemic changes, but ultimately is nonspecific. Otherwise the periventricular white matter changes associated with the patient's known diagnosis of multiple sclerosis are described above. No mass effect or midline shift is seen. No enhancing lesions are identified. The corpus callosum and sella appear normal. Aside from a few punctate foci of FLAIR hyperintensity within the bilateral cerebellar lobes (series 8 image 8, which are nonspecific, the posterior fossa, the bilateral cerebellar lobes, and the visualized brainstem appear within normal limits. The orbits appear normal. The bilateral mastoids appear pneumatized and clear. There is a small T2 hyperintense focus within the ethmoid sinuses on the left measuring 5 mm (series 13 image 9) which may represent a small mucous retention cyst. The nasal septum is deviated to the left. Normal flow voids are demonstrated in the carotid arteries and basilar artery. The calvarium and visualized cervical spine appear normal. Procedure Note Yoandy Monge MD - 04/08/2025 PROCEDURE: MRI BRAIN WWO CONTRAST, DATE/TIME OF EXAM: 04/07/2025 7:47AM, LOCATION [facility] INDICATION: G35.D: MS (multiple sclerosis) ADDITIONAL CLINICAL INFORMATION: Ordering Provider Reason For Exam: Interval monitoring, Hx MS EXAMINATION: Magnetic resonance imaging (MRI) of the brain without andwith contrast TECHNIQUE: MRI of the brain was performed prior to and following the uneventful administration of 8 mL GADAVIST intravenous contrastaccording to standard protocol. Please note a standard protocol was performed this time. COMPARISON: Multiple prior studies including MRI brain from 05/24/2023nd MRI brain from 09/28/2022 FINDINGS: There are scattered periventricular areas of T2/FLAIR hyperintensitywithin the subcortical white matter at the level of the woodruff radiata. Thereis no corresponding true diffusion restriction associated with theseT2/FLAIR hyperintensities. There is no associated contrast enhancement of these FLAIR hyperintensities to suggest active demyelination plaques. These appear similar to MRI brain from 05/24/2023 No evidence of acute cerebral infarction is seen. No evidence of acuteor chronic hemorrhage is identified. There is mild cerebral volume losswith associated ex vacuo ventricular dilatation. There is diffuse periventricular T2/FLAIR hyperintensity which may represents smallvessel ischemic changes, but ultimately is nonspecific. Otherwise the periventricular white matter changes associated with the patient's known diagnosis of multiple sclerosis are described above. No mass effect or midline shift is seen. No enhancing lesions are identified. The corpus callosum and sella appear normal. Aside from a few punctate foci ofFLAIR hyperintensity within the bilateral cerebellar lobes (series 8 image 8, which are nonspecific, the posterior fossa, the bilateral cerebellarlobes, and the visualized brainstem appear within normal limits. The orbits appear normal. The bilateral mastoids appear pneumatized and clear. There is a small T2 hyperintense focus within the ethmoid sinuseson the left measuring 5 mm (series 13 image 9) which may represent a small mucous retention cyst. The nasal septum is deviated to the left. Normal flow voids are demonstrated in the carotid arteries and basilar artery.The calvarium and visualized cervical spine appear normal. IMPRESSION: Compared to the prior MRI of the brain from 05/24/2023: 1.Stable scan features compared to the prior. 2.Multiple intracranial white matter lesions compatible with multiple sclerosis. No new T2 lesions and no new enhancing lesions to suggestactive demyelination. 3.Mild to moderate parenchymal volume loss. > Dictated by Ruiz Rene DO (radiology technologist) 04/07/2025 11:32AM. > Dictated by Dining Service Supervisor IYoandy MD have personally reviewed and interpretedthis examination/study. > Interpreting Provider: Yoandy Monge MD on 04/08/2025 9:16 AM Hollis Kahn MD MR ORDERABLES Final Resu lt * (ABNORMAL) LIPID PROFILE (03/21/2023 6:29 AM CDT) Cholesterol Total 190 <200 mg/dL 03/21/2023 9:07 AM [facility] HDL 53 >40 mg/dL 03/21/2023 9:07 AM [facility] Comment: ATP III Classification of HDL Cholesterol: <40 mg/dL: Considered a major risk factor. >60 mg/dL: Considered a negative risk factor. LDL Calculated 120(H) <100 mg/dL 03/21/2023 9:07 AM [facility] Comment: ATP III Classification of LDL Cholesterol: <100 mg/dL: Optimal 100 - 129 mg/dL: Near Optimal/Above Optimal 130 - 159 mg/dL: Borderline High 160 - 189 mg/dL: High >190 mg/dL: Very High Triglycerides 85 <150 mg/dL 03/21/2023 9:07 AM [facility] Comment: ATP III Classification of Triglycerides: <150 mg/dL: Normal 150 - 199 mg/dL: Borderline High 200 - 400 mg/dL: High >500 mg/dL: Very High Blood BLOOD SPECIMEN / Unknown Lab Venipuncture / Unknown 03/21/2023 6:29 AM CDT 03/21/2023 8:32 AM CDT Brent Groves MD LAB - CHEMISTRY ORDERABL ES Final Result [facility] [address] [place] [address], [facility] [phone] * HIV-1 HIV-2 ANTIGEN/ANTIBODY (09/25/2015 8:57 AM CDT) HIV Antigen/Antibody 4th Generation NON-REACT GRACY NON-REACT GRACY [facility]) Comment: A Nonreactive HIV Ag/Ab result does not exclude HIV infection since the time frame for seroconversion is variable. If acute HIV infection is suspected, a HIV-1 RNA Qualitative TMA test is recommended. PLEASE NOTE: This information has been disclosed to you from records whose confidentiality may be protected by state law. If your state requires such protection, then the state law prohibits you from making any further disclosure of the information without the specific written consent of the person to whom it pertains, or as otherwise permitted by law. A general authorization for the release of medical or other information is NOT sufficient for this purpose. The performance of this assay has not been clinically validated in patients less than 2 years old. For additional information please refer to http://education.Smarty Ants/faq/TDG151 (This link is being provided for informational/ educational purposes only.) Test Performed at: [facility] [id number] [employer] [facility] [address] DEYANIRA BLANCA DO,MPH 09/25/2015 8:57 AM CDT 09/25/2015 8:57 AM CDT us Historical Provider LAB - HEMATOLOGY ORDERABL ES Edited Result - Final [facility] ([facility]) [id number] * HEPATITIS C AB W/RFLX TO HCV RNA QN PCR (09/25/2015 8:57 AM CDT) Hepatitis C Antibody NON-REACTI VE NON-REACT GRACY [facility]) Signal/Cutoff 0.01 <1.00 [facility]) Comment: Test Performed at: [facility] [id number] [place] [place] [address] DEYANIRA BLANCA DO,MPH 09/25/2015 8:57 AM CDT 09/25/2015 8:57 AM CDT us Historical Provider LAB - CHEMISTRY ORDERABLE S Edited Result - Final [facility]) [id number] from Last 3 Months or Most Recently Relevant to Health Maintenance Insurance Care Teams Gaming Cage Cashier Relationship Specialty Start Date End Date Juvenal Quinteros MD [address] [phone] PCP - General Family Medicine 03/28/23
--- OUTSIDE RECORDS SUMMARY | 2025-04-10 12:50 | XMS_ITS | Clinical Summary ---
Author Organization [facility] Address [address] [place] [address] Care Team Providers Care Hot Strip Finisher Name Role Phone Rekha Singh MD Primary Care Provider [phone] Allergies No known active allergies Medications calcium carbonate-vitam in D 600-400 MG-UNIT Tab Take 1 tablet by mouth daily. Active acetaminophen 325 MG tablet Take 325 mg by mouth every 4 (four) hours as needed. Active baclofen 10 MG tablet Take 15 mg by mouth. 12/21/2016 Active Cholecalciferol (VITAMIN D3) 25 MCG (1000 UT) Cap Take 4 capsules by mouth daily. 12/21/2016 Active Dalfampridine 10 MG TABLET SR 12 HR Take 10 mg by mouth 2 (two) times daily. 12/21/2016 Active DULoxetine 60 MG capsule Take 60 mg by mouth 2 (two) times daily. 12/21/2016 Active gabapentin 600 MG tablet Take 600 mg by mouth. 01/15/2020 Active melatonin 3 MG tablet Take 6 mg by mouth. 04/20/2020 Active omeprazole 20 MG capsule Take 1 capsule by mouth. 12/21/2016 Active traZODone 100 MG tablet Take 150 mg by mouth. 07/13/2020 Active Family History Medical History Relation Comments Heart Disease Father Relation Status Comments Father Mother Alive Social History Tobacco Use Types Packs/Day Years [...] Sign Reading Time Taken Comments Blood Pressure 127/89 09/16/2020 3:15 PM CDT Pulse 84 09/16/2020 3:15 PM CDT Temperature 36.7 C (98 F) 09/16/2020 1:53 PM CDT Respiratory Rate 18 09/16/2020 3:15 PM CDT Oxygen Saturation 100% 09/16/2020 3:15 PM CDT Inhaled Oxygen Concentration - - Weight 97.5 kg (215 lb) 09/14/2020 12:46 PM CDT Height 182.9 cm (6') 09/14/2020 12:46 PM CDT Body Mass Index 29.16 09/14/2020 12:46 PM CDT Plan of Treatment Health Maintenance Due Date Last Done Comments Annual Physical 1976 Hepatitis C 1991 DTaP, Tdap and Td Vaccines ( 1 - Tdap) 1992 Hepatitis B Vaccines (1 of 3 - 19+ 3-dose series) 1992 Pneumococcal Vaccine: 50+ Years (1 of 1 - PCV) 2023 Zoster Vaccines (1 of 2) 2023 COVID-19 Vaccine (2 - 2024-2 6 season) 2025 08/10/2020 Influenza Adult (#1) 2025 04/20/2021, 08/27/2015 Colorectal Cancer Screening Colonoscopy (10 Years) 09/16/2030 09/16/2020, 09/16/2020, 09/16/2020 Hepatitis A Vaccines Aged Out No long er eligible based on patient's age to complete this topic Meningococcal B Vaccine Aged Out No l onger eligible based on patient's age to complete this topic Meningococcal Vaccine Aged Out No danny kori eligible based on patient's age to complete this topic RSV Immunizations Under 20 Months Aged Out No longer eligible b ased on patient's age to complete this topic Procedures Procedure Name Priority Date/Time Associated Diagnosis Comments COLONOSCOPY Routine 09/16/2020 2:50 PM CDT from Last 3 Months or Most Recently Relevant to Health Maintenance Results * Colonoscopy (09/16/2020 2:50 PM CDT) Moshe Carballo MD - 09/16/2020 2:50 PM CDT Moshe Sharif MD 09/16/2020 2:55 PM MOSHE SHARIF MD, FACG, FACP COLONOSCOPY INDICATION: Screening for colon cancer/Family history of colon cancer. POST-OP: Two polyps removed. SEDATION: Per anesthesia. PREP: Good. With the patient in the left lateral decubitus position, the Olympus [id number] colonoscope was introduced into the rectum and advanced easily to the Terminal Ileum. Careful inspection of the mucosa was made upon insertion and withdrawal of the endoscope. FINDINGS: Terminal ileum: distal 5 cm normal. Cecum, Transverse, Descending colon and Rectum including retroflexion normal. Ascending colon: 5 mm sessile polyp removed with cold biopsy forceps without bleed. Sigmoid colon: 8 mm sessile polyp removed with cold snare polypectomy without bleed. No masses, AVMs, colitis or diverticulosis seen. No complications, blood loss or implants. ASSESSMENT AND PLAN: A. Two polyps removed & family history of colon cancer: if no cancer repeat colonoscopy in 5 years. B. Hematochezia: - Likely secondary to hemorrhoids not seen on endoscopy - Treat symptomatically Thank you for allowing me to care for your patient. He will follow-up with his PCP as needed. Moshe Sharif M.D. Moshe Sharif MD GI PROCEDURE ORDERABLES Fin al Result from Last 3 Months or Most Recently Relevant to Health Maintenance Insurance [id number] Care Teams Hot Strip Finisher Relationship Specialty Start Date End Date Rekha Singh MD 3 [facility] [address] [place] [address] PCP - General FAMILY PRACTICE 10/02/18
== END 2025-04-09 13:34 | disposition home or self-care (01) ==
PROVIDERS: Visit Provider Otolaryngology
DX: J32.9 Chronic sinusitis, unspecified (principal)
CPT/HCPCS: 70486